=== PATIENT | female | born 1990 | race Caucasian/White ===

== ENCOUNTER 2023-06-27 14:23 | Observation (INO) | payer OTHER ==
[~2023-06-27] VITALS: Ht 160 cm; Wt 78.7 kg
[2023-06-27 15:27] LABS: BASOPHILS ABSOLUTE AUTO 0.08 K/mm3 (0.00-0.23); BASOPHILS PERCENT AUTO 0 % (0-2); EOSINOPHILS PERCENT AUTO 0 % (0-6); Hematocrit 46.7 % (33.0-51.0); Hemoglobin 15.6 g/dL (11.5-16.0); IMMATURE GRAN ABSOLUTE AUTO 0.28 K/mm3 (0.00-0.10); IMMATURE GRAN PERCENT AUTO 1 % (0-1); LYMPHOCYTES ABSOLUTE AUTO 2.24 K/mm3 (0.84-5.20); LYMPHOCYTES PERCENT AUTO 8 % (21-46); MONOCYTES ABSOLUTE AUTO 2.21 K/mm3 (0.16-1.47); MONOCYTES PERCENT AUTO 8 % (4-13); Mean Corpuscular HGB 31.5 pg (26.0-34.0); Mean Corpuscular HGB Conc 33.4 g/dL (31.5-36.5); Mean Corpuscular Volume 94 fL (80-100); Mean Platelet Volume 8.8 fL (9.1-12.4); NEUTROPHILS ABSOLUTE AUTO 22.01 K/mm3 (1.96-9.15); NEUTROPHILS PERCENT AUTO 82 % (41-73); Platelet Count 381 K/mm3 (150-400); RDW Coefficient Variation 11.7 % (11.7-14.2); RDW Standard Deviation 40.5 fL (35.1-46.3); Red Blood Cell Count 4.95 M/mm3 (3.80-5.20); White Blood Cell Count 26.82 K/mm3 (4.00-11.30)
[2023-06-27 16:03] LABS: Influenza A, PCR NEGATIVE (NEGATIVE); Influenza B, PCR NEGATIVE (NEGATIVE); SARS-Cov-2 (COVID-19) PCR, MMC NEGATIVE (NEGATIVE)
[2023-06-27 16:04] LABS: Resp Syncytial Virus, PCR POSITIVE (NEGATIVE)
[2023-06-27 19:42] LABS: Glucose, Blood 583 mg/dL (70-99)
[2023-06-27 21:29] LABS: Base Excess Venous -21.9 mmol/L; Bicarbonate Venous 10.1 mmol/L (24.0-30.0); PCO2 Venous 27.8 mmHg (38-42); pH Blood Venous 7.08 (7.34-7.37)
[2023-06-27 21:31] LABS: Albumin, Blood 4.3 g/dL (3.4-5.0); Bilirubin, Total 0.6 mg/dL (0.1-1.0); Bun/Creatinine Ratio 36.5 (12.0-20.0); Calcium, Blood 9.3 mg/dL (8.5-10.1); Creatinine, Blood 1.04 mg/dL (0.40-1.00); Globulin, Blood 4.5 g/dL (2.2-4.0); Potassium, Blood 5.8 mmol/L (3.5-5.5); Total Protein, Blood 8.8 g/dL (6.4-8.2)
[2023-06-27 22:18] LABS: Magnesium, Blood 2.6 mg/dL (1.6-2.4); Phosphorus, Blood 4.5 mg/dL (2.5-4.9)
[2023-06-27 23:23] LABS: Source, Urine Clean Catch
[2023-06-27 23:48] LABS: Bilirubin, Urine Neg (Neg); Blood, Urine 3+ (Neg); Glucose Qualitative, Urine 4+ (Neg); Ketones, Urine 4+ (Neg); Leukocyte Esterase, Urine Neg (Neg); Nitrite, Urine Neg (Neg); Protein, Urine 1+ (Neg); Urobilinogen, Urine NORM (Normal)
[2023-06-28 00:11] LABS: Appearance, Urine Clear (Clear); Bacteria Few /hpf; Color, Urine Pale Yellow (P-Yellow); Red Blood Cells, Urine 0-2 /hpf (0-2); Squamous Epithelial Cells Mod /hpf (Few); White Blood Cells, Urine 0-2 /hpf (0-5)
[2023-06-28 02:39] LABS: Albumin, Blood 3.5 g/dL (3.4-5.0); Anion Gap 12 mmol/L (6-16); Blood Urea Nitrogen 30 mg/dL (8-24); Bun/Creatinine Ratio 38.5 (12.0-20.0); CO2, Blood 14 mmol/L (21-32); Calcium, Blood 8.1 mg/dL (8.5-10.1); Chloride, Blood 110 mmol/L (98-108); Creatinine, Blood 0.78 mg/dL (0.40-1.00); Glomerular Filtration Rate 102 (60-); Glucose, Blood 272 mg/dL (70-99); Phosphorus, Blood 1.9 mg/dL (2.5-4.9); Potassium, Blood 4.3 mmol/L (3.5-5.5); Sodium, Blood 136 mmol/L (136-145)
[2023-06-28 03:05] LABS: Bun/Creatinine Ratio 40.2 (12.0-20.0); Calcium, Blood 8.2 mg/dL (8.5-10.1); Creatinine, Blood 0.75 mg/dL (0.40-1.00); Potassium, Blood 4.4 mmol/L (3.5-5.5)
[2023-06-28 07:25] LABS: Bun/Creatinine Ratio 35.2 (12.0-20.0); Calcium, Blood 8.3 mg/dL (8.5-10.1); Creatinine, Blood 0.71 mg/dL (0.40-1.00); Potassium, Blood 4.5 mmol/L (3.5-5.5)
[2023-06-28 07:30] LABS: Albumin, Blood 3.4 g/dL (3.4-5.0); Anion Gap 12 mmol/L (6-16); Blood Urea Nitrogen 25 mg/dL (8-24); Bun/Creatinine Ratio 36.7 (12.0-20.0); CO2, Blood 15 mmol/L (21-32); Calcium, Blood 8.3 mg/dL (8.5-10.1); Chloride, Blood 111 mmol/L (98-108); Creatinine, Blood 0.68 mg/dL (0.40-1.00); Glomerular Filtration Rate 117 (60-); Glucose, Blood 236 mg/dL (70-99); Phosphorus, Blood 2.3 mg/dL (2.5-4.9); Potassium, Blood 4.5 mmol/L (3.5-5.5); Sodium, Blood 138 mmol/L (136-145)
[2023-06-28 09:38] VITALS: BP 109/67
[2023-06-28] MEDS ORDERED: HUMALOG KW100 UNIT/1 SC (09:54)
[2023-06-28] MEDS ORDERED: INSULANI SC (09:55)
[2023-06-28 10:13] LABS: Bun/Creatinine Ratio 32.4 (12.0-20.0); Calcium, Blood 8.5 mg/dL (8.5-10.1); Creatinine, Blood 0.71 mg/dL (0.40-1.00); Potassium, Blood 4.5 mmol/L (3.5-5.5)
[2023-06-28 10:15] LABS: Albumin, Blood 3.3 g/dL (3.4-5.0); Anion Gap 8 mmol/L (6-16); Blood Urea Nitrogen 23 mg/dL (8-24); CO2, Blood 17 mmol/L (21-32); Calcium, Blood 8.4 mg/dL (8.5-10.1); Chloride, Blood 109 mmol/L (98-108); Creatinine, Blood 0.68 mg/dL (0.40-1.00); Glomerular Filtration Rate 117 (60-); Glucose, Blood 355 mg/dL (70-99); Phosphorus, Blood 2.2 mg/dL (2.5-4.9); Potassium, Blood 4.5 mmol/L (3.5-5.5); Sodium, Blood 134 mmol/L (136-145)
[2023-06-28 13:46] LABS: Bun/Creatinine Ratio 39.4 (12.0-20.0); Calcium, Blood 8.6 mg/dL (8.5-10.1); Creatinine, Blood 0.56 mg/dL (0.40-1.00); Potassium, Blood 4.2 mmol/L (3.5-5.5)
[2023-06-28 15:23] VITALS: BP 102/59
--- NOTE | 2023-06-28 15:43 | NUR ---
SUMMARY: ARRIVAL AND DEPARTURE Assumed care of pt on arrival to ICU 1 at 0929 from emergency department. Telephone report received from Louie MCKINNON. Per report, pt has been off insulin drip since previous evening and pt received glargine earlier today. Additionally, pt ate sandwich and pudding and tolerated well. Call placed to Dr Sharif to plan of care who presented to bedside with resident team shortly after pt arrival. Pt made medical floor status without telemetry. Discussed that CO2 on BMP has not yet normalized and pt's blood sugar has increased since receiving meal in ER. Plan to administer insulin, feed patient, give 500 mL bolus of LR and recheck labs at 1230. These interventions were completed. Pt tolerated meal without nausea or signs of GI upset. Lab results called to Dr Deborah Barreto. She and care team presented to bedside and provided discharge orders for patient. Pt agreeable and eager for discharge. Pt does not have primary care provider. Provided patient with list and contact information of primary care providers in area. Pt states her previous primary care provider in [facility] ensured she had insulin for a year and she has no trouble with accessing medication at this time. enocuraged pt to establish care in the area and she is agreeable. Discharge education provided as well as unit phone number. IV access discontinued. Escorted to ride via wheelchair by ANDREW Farah. No belongings left in room.
== END 2023-06-28 16:31 | disposition home or self-care (01) ==
LOC: ER 14:23 → ICUE 14:24 → ERHOLD 06-28 05:38 → ICUE 06-28 05:38 → ER 06-28 05:38 → ICUE 06-28 09:27 → ERHOLD 06-28 09:27 → ICUE 06-28 16:31
PROVIDERS: Family Medicine; Physician Assistant; Student in an Organized Health Care Education/Training Program; ADMIT Student in an Organized Health Care Education/Training Program
DX: E10.10 Type 1 diabetes mellitus with ketoacidosis without coma (principal); B97.4 Respiratory syncytial virus as the cause of diseases classified elsewhere; Z87.891 Personal history of nicotine dependence; Z79.4 Long term (current) use of insulin
CPT/HCPCS: 0241U; 36415; 71046; 80048; 80053; 80069; 81001; 82010; 82803; 82947; 83735; 84100; 84703; 85025; 93005; 93010; 96361; 96365; 96375; 96376; 99285-25; A9270; C9113; G0378; J1815; J2405; J7030; J7120

== ENCOUNTER → 2024-06-22 | Outpatient (CLI) | payer OTHER ==
[~2024-06-22] MED LIST: HUMALOG KW100 UNIT/1 SC; INSULANI SC
[2024-06-22 10:44] LABS: BASOPHILS ABSOLUTE AUTO 0.02 K/mm3 (0.00-0.23); BASOPHILS PERCENT AUTO 0 % (0-2); EOSINOPHILS ABSOLUTE AUTO 0.09 K/mm3 (0.00-0.68); EOSINOPHILS PERCENT AUTO 2 % (0-6); Hematocrit 41.8 % (33.0-51.0); Hemoglobin 14.6 g/dL (11.5-16.0); IMMATURE GRAN ABSOLUTE AUTO 0.01 K/mm3 (0.00-0.10); IMMATURE GRAN PERCENT AUTO 0 % (0-1); LYMPHOCYTES ABSOLUTE AUTO 2.37 K/mm3 (0.84-5.20); LYMPHOCYTES PERCENT AUTO 41 % (21-46); MONOCYTES ABSOLUTE AUTO 0.38 K/mm3 (0.16-1.47); MONOCYTES PERCENT AUTO 7 % (4-13); Mean Corpuscular HGB 31.6 pg (26.0-34.0); Mean Corpuscular HGB Conc 34.9 g/dL (31.5-36.5); Mean Corpuscular Volume 91 fL (80-100); Mean Platelet Volume 9.1 fL (9.1-12.4); NEUTROPHILS ABSOLUTE AUTO 2.88 K/mm3 (1.96-9.15); NEUTROPHILS PERCENT AUTO 50 % (41-73); Platelet Count 248 K/mm3 (150-400); RDW Coefficient Variation 11.2 % (11.7-14.2); RDW Standard Deviation 36.8 fL (35.1-46.3); Red Blood Cell Count 4.62 M/mm3 (3.80-5.20); White Blood Cell Count 5.75 K/mm3 (4.00-11.30)
[2024-06-22 10:54] LABS: Albumin/Globulin Ratio 1.1 (0.8-1.8); Bilirubin, Total 0.5 mg/dL (0.1-1.0); Bun/Creatinine Ratio 18.1 (12.0-20.0); Calcium, Blood 9.2 mg/dL (8.5-10.1); Creatinine, Blood 0.72 mg/dL (0.40-1.00); Globulin, Blood 3.6 g/dL (2.2-4.0); Total Protein, Blood 7.6 g/dL (6.4-8.2)
== END | disposition home or self-care (01) ==
LOC: LAB 10:38 → LAB SHORT 10:38
PROVIDERS: Family Medicine
DX: N39.0 Urinary tract infection, site not specified (principal); R10.13 Epigastric pain
CPT/HCPCS: 80053; 83690; 84484; 85025; 85379; 87077; 87086; 87147; 87186

== ENCOUNTER → 2024-06-24 | Outpatient (CLI) | payer OTHER ==
[2024-07-01 07:49] LABS: HPV HIGH RISK BY TMA Not Detected; HPV SOURCE Cervical
== END ==
LOC: LAB SHORT 17:25 → LAB 17:25
PROVIDERS: Nurse Practitioner Family
DX: Z01.419 Encounter for gynecological examination (general) (routine) without abnormal findings (principal)
CPT/HCPCS: 87624; G0123

== ENCOUNTER 2025-03-05 18:04 | Emergency (ER) | payer OTHER ==
[~2025-03-05] VITALS: Ht 162.6 cm; Wt 93.0 kg
[2025-03-05 18:57] LABS: BASOPHILS ABSOLUTE AUTO 0.03 K/mm3 (0.00-0.23); BASOPHILS PERCENT AUTO 1 % (0-2); EOSINOPHILS ABSOLUTE AUTO 0.07 K/mm3 (0.00-0.68); EOSINOPHILS PERCENT AUTO 1 % (0-6); Hematocrit 40.3 % (33.0-51.0); Hemoglobin 14.3 g/dL (11.5-16.0); IMMATURE GRAN ABSOLUTE AUTO 0.01 K/mm3 (0.00-0.10); IMMATURE GRAN PERCENT AUTO 0 % (0-1); LYMPHOCYTES ABSOLUTE AUTO 2.98 K/mm3 (0.84-5.20); LYMPHOCYTES PERCENT AUTO 45 % (21-46); MONOCYTES ABSOLUTE AUTO 0.31 K/mm3 (0.16-1.47); MONOCYTES PERCENT AUTO 5 % (4-13); Mean Corpuscular HGB Conc 35.5 g/dL (31.5-36.5); Mean Corpuscular Volume 91 fL (80-100); NEUTROPHILS ABSOLUTE AUTO 3.17 K/mm3 (1.96-9.15); NEUTROPHILS PERCENT AUTO 48 % (41-73); NRBC ABSOLUTE 0.00 K/mm3 (0.00-0.02); NRBC Auto 0.0 /100 WBC (0.0-0.2); Platelet Count 263 K/mm3 (150-400); RDW Coefficient Variation 11.7 % (11.7-14.2); RDW Standard Deviation 38.8 fL (35.1-46.3)
[2025-03-05 19:27] LABS: Alanine Aminotransfer (ALT/SGP 23.0 U/L (12-78); Albumin, Blood 4.0 g/dL (3.4-5.0); Albumin/Globulin Ratio 1.1 (0.8-1.8); Anion Gap 10.0 mmol/L (3-11); Aspartate Aminotrans (AST/SGOT 15.0 U/L (12-37); Bilirubin, Total 0.3 mg/dL (0.1-1.0); Blood Urea Nitrogen 10.0 mg/dL (8-24); CO2, Blood 27.0 mmol/L (21-32); Calcium, Blood 9.0 mg/dL (8.5-10.1); Chloride, Blood 103.0 mmol/L (98-108); Creatinine, Blood 0.65 mg/dL (0.40-1.00); Globulin, Blood 3.5 g/dL (2.2-4.0); Glucose, Blood 365.0 mg/dL (70-99); Potassium, Blood 3.4 mmol/L (3.5-5.5); Sodium, Blood 137.0 mmol/L (136-145); Total Protein, Blood 7.5 g/dL (6.4-8.2)
[2025-03-05 19:30] VITALS: BP 129/92
== END 2025-03-05 20:10 | disposition home or self-care (01) ==
LOC: ER 18:04
PROVIDERS: Student in an Organized Health Care Education/Training Program
DX: E10.65 Type 1 diabetes mellitus with hyperglycemia (principal); F10.129 Alcohol abuse with intoxication, unspecified
CPT/HCPCS: 80053; 85025; 99283

== ENCOUNTER 2025-04-02 17:11 | Inpatient (IN) | payer OTHER ==
[~2025-04-02] VITALS: Ht 162.6 cm; Wt 91.4 kg
[2025-04-02] VITALS (7 sets, daily range): BP systolic 113–140; BP diastolic 64–76
[2025-04-02] MEDS ORDERED: NS 1,000 ML IV SCH (17:50)
[2025-04-02] MEDS ORDERED: Ondansetron HCl 2 MG / ML 2ML Vial IV PRN ×2 (17:50→19:45)
[2025-04-02 18:17] LABS: BASOPHILS ABSOLUTE AUTO 0.06 K/mm3 (0.00-0.23); BASOPHILS PERCENT AUTO 0 % (0-2); EOSINOPHILS ABSOLUTE AUTO 0.00 K/mm3 (0.00-0.68); EOSINOPHILS PERCENT AUTO 0 % (0-6); Hematocrit 44.6 % (33.0-51.0); Hemoglobin 14.8 g/dL (11.5-16.0); IMMATURE GRAN ABSOLUTE AUTO 0.09 K/mm3 (0.00-0.10); IMMATURE GRAN PERCENT AUTO 1 % (0-1); LYMPHOCYTES ABSOLUTE AUTO 2.36 K/mm3 (0.84-5.20); LYMPHOCYTES PERCENT AUTO 12 % (21-46); MONOCYTES ABSOLUTE AUTO 0.50 K/mm3 (0.16-1.47); MONOCYTES PERCENT AUTO 3 % (4-13); Mean Corpuscular HGB Conc 33.2 g/dL (31.5-36.5); Mean Corpuscular Volume 96 fL (80-100); NEUTROPHILS ABSOLUTE AUTO 16.53 K/mm3 (1.96-9.15); NEUTROPHILS PERCENT AUTO 85 % (41-73); NRBC ABSOLUTE 0.00 K/mm3 (0.00-0.02); NRBC Auto 0.0 /100 WBC (0.0-0.2); Platelet Count 363 K/mm3 (150-400); RDW Coefficient Variation 11.4 % (11.7-14.2); RDW Standard Deviation 40.0 fL (35.1-46.3)
[2025-04-02 18:22] LABS: pH Blood Venous 7.07 (7.34-7.37)
[2025-04-02 19:16] LABS: Alanine Aminotransfer (ALT/SGP 27.0 U/L (12-78); Albumin, Blood 4.6 g/dL (3.4-5.0); Albumin/Globulin Ratio 1.2 (0.8-1.8); Anion Gap 27.0 mmol/L (3-11); Aspartate Aminotrans (AST/SGOT 19.0 U/L (12-37); Bilirubin, Total 0.8 mg/dL (0.1-1.0); Blood Urea Nitrogen 31.0 mg/dL (8-24); CO2, Blood 8.0 mmol/L (21-32); Calcium, Blood 9.7 mg/dL (8.5-10.1); Chloride, Blood 100.0 mmol/L (98-108); Creatinine, Blood 0.87 mg/dL (0.40-1.00); Globulin, Blood 3.7 g/dL (2.2-4.0); Glucose, Blood 466.0 mg/dL (70-99); Potassium, Blood 4.9 mmol/L (3.5-5.5); Sodium, Blood 130.0 mmol/L (136-145); Total Protein, Blood 8.3 g/dL (6.4-8.2)
[2025-04-02] MEDS ORDERED: Metoclopramide HCl 5MG / ML 2ML Vial IV ONE (19:25)
[2025-04-02] MEDS ORDERED: Insulin Human Regular 100 UNIT in NS 100 ML IV SCH (19:25)
[2025-04-02 19:44] LABS: Source, Urine Voided
[2025-04-02] MEDS ORDERED: FLU VACC TS2025-26(6MOS UP)/PF 45 MCG/0.5 ML SYRINGE IM SCH (19:45)
[2025-04-02 19:50] LABS: Bilirubin, Urine Neg (Neg); Glucose Qualitative, Urine 4+ (Neg); Ketones, Urine 4+ (Neg); Leukocyte Esterase, Urine Neg (Neg); Protein, Urine 2+ (Neg); Specific Gravity, Urine 1.020 (1.003-1.022); Urobilinogen, Urine NORM (Normal)
[2025-04-02] MEDS ORDERED: Metoclopramide HCl 5MG / ML 2ML Vial IV PRN (19:50)
[2025-04-02 19:57] LABS: Color, Urine Pale Yellow (P-Yellow)
[2025-04-02 19:58] LABS: Red Blood Cells, Urine 0-2 /hpf (0-2); White Blood Cells, Urine 0-2 /hpf (0-5)
--- NOTE | 2025-04-02 22:17 | NUR ---
NEW ADMIT: PATIENT ALERT AND ORIENT X4. REPORTS NO NUMBNESS/TINGLING OR PAIN AT THIS TIME. REPORTING MILD NAUSEA AND DRY MOUTH. MOVES EXTREMITIES X4. ROOM AIR WITH EVEN RESPIRATIONS. ST ON MONITOR 109-111. AMBULATES TO BATHROOM AND AROUND ROOM WITHOUT ASSISTANCE. ABLE TO ANSWER ALL QUESTIONS INDEPENDENTLY. LAST BM TODAY, URINATES INDEPENDENTLY. NO WOUNDS NOTED. IV X2 20G RIGHT AC AND 20G TO LEFT HAND PATENT. NPO AT THIS TIME. BG RESULTS NOTED IN CHART. PATIENT ARRIVED WITH INSULIN GTT INFUSTING AT 2.5 UNITS. LR INFUSING TO GRAVITY. EDUCATED AND CURRENTLY VERBALLY AGREES TO CURRENT PLAN OF CARE. NO S/S OF DISTRESS NOTED AT THIS TIME. SAFETY AND COMFORT MAINTIANED.
[2025-04-02 22:22] LABS: pH Blood Venous 7.01 (7.34-7.37)
[2025-04-02 22:39] LABS: Magnesium, Blood 2.2 mg/dL (1.6-2.4)
[2025-04-02 23:06] LABS: Blood Urea Nitrogen 31.0 mg/dL (8-24); Chloride, Blood 105.0 mmol/L (98-108); Creatinine, Blood 0.76 mg/dL (0.40-1.00); Glucose, Blood 439.0 mg/dL (70-99); Phosphorus, Blood 5.3 mg/dL (2.5-4.9); Potassium, Blood 5.4 mmol/L (3.5-5.5); Sodium, Blood 132.0 mmol/L (136-145)
[2025-04-02 23:07] LABS: Anion Gap 25.0 mmol/L (3-11); CO2, Blood 7.0 mmol/L (21-32); Calcium, Blood 9.2 mg/dL (8.5-10.1)
[2025-04-03] VITALS (29 sets, daily range): BP systolic 98–139; BP diastolic 51–81
[2025-04-03 02:02] LABS: pH Blood Venous 7.16 (7.34-7.37)
[2025-04-03 02:17] LABS: Anion Gap 18.0 mmol/L (3-11); Blood Urea Nitrogen 26.0 mg/dL (8-24); CO2, Blood 11.0 mmol/L (21-32); Calcium, Blood 9.0 mg/dL (8.5-10.1); Chloride, Blood 111.0 mmol/L (98-108); Creatinine, Blood 0.79 mg/dL (0.40-1.00); Glucose, Blood 255.0 mg/dL (70-99); Potassium, Blood 5.1 mmol/L (3.5-5.5); Sodium, Blood 135.0 mmol/L (136-145)
--- NOTE | 2025-04-03 02:17 | NUR ---
NOTIFIED DR. HOLLOWAY OF PATIENT BLOOD GLUCOSE <250. PER PROTOCOL TO START D5 1/2 NS AT A RATE OF AT LEAST 100 CC/HR. MD MADE AWARE OF NEED FOR CHANGE IN PATIENT FLUIDS AND STATES, "I WILL LOOK AT THE CHART AND PLACE ORDERS" AWAITING ORDERS.
[2025-04-03] MEDS ORDERED: D5W-1/2NS 1,000 ML IV SCH ×2 (02:30→16:00)
[2025-04-03] MEDS ORDERED: D5W-1/2NS 1,000 ML IV ONE (04:20)
[2025-04-03] MEDS ORDERED: Sodium Bicarb 8.4% 1 MEQ/ML 50 ML Vial IV ONE (05:00)
--- NOTE | 2025-04-03 05:28 | NUR ---
SHIFT SUMMARY: PT A/Ox4 AND PLEASANT WITH CARE. VSS. MONITOR SHOWS SINUS RYTHM TO SINUS TACH, RATE 90s-100s. STILL SOME NAUSEA, MEDICATED PER EMAR. PT ABLE TO USE TOILET SBA FOR LINES/CORDS. INSULIN GTT INFUSING, SEE FLOWSHEET FOR TITRATIONS. WILL REPORT TO ONCOMING RN.
[2025-04-03 06:32] LABS: Anion Gap 15.0 mmol/L (3-11); Blood Urea Nitrogen 21.0 mg/dL (8-24); CO2, Blood 16.0 mmol/L (21-32); Calcium, Blood 9.0 mg/dL (8.5-10.1); Chloride, Blood 110.0 mmol/L (98-108); Creatinine, Blood 0.72 mg/dL (0.40-1.00); Glucose, Blood 203.0 mg/dL (70-99); Potassium, Blood 4.5 mmol/L (3.5-5.5); Sodium, Blood 136.0 mmol/L (136-145)
--- NOTE | 2025-04-03 06:41 | NUR ---
UPDATE: NOTIFIED ON PT POTASSIUM OF 4.5. PT STILL ON INSULIN GTT. NO NEW ORDERS AT THIS TIME.
--- NOTE | 2025-04-03 07:54 | NUR ---
PT C/O NAUSEA DURING BSR, NOC RN GAVE ZOFRAN. UPON RETURN TO ROOM FOR BLOOD SUGAR CHECK, PT STATED THAT THE NAUSEA WAS IMPROVED. PT SLEEPY. TRYING TO REST BETWEEN SUGAR CHECKS.
[2025-04-03] MEDS ORDERED: Enoxaparin 40 MG/0.4 ML SYR SC SCH (09:00)
--- NOTE | 2025-04-03 09:00 | NUR ---
WHILE ON THE DEXTROSE AND INSULIN DRIP, DR. BONILLA ASKS THAT THE INSULIN DRIP NOT BE LESS THAN 3 U/HR UNTIL GAP IS CLOSED.
[2025-04-03 10:46] LABS: Magnesium, Blood 2.2 mg/dL (1.6-2.4); Phosphorus, Blood 2.4 mg/dL (2.5-4.9)
[2025-04-03 11:46] LABS: Anion Gap 13.0 mmol/L (3-11); Blood Urea Nitrogen 20.0 mg/dL (8-24); CO2, Blood 17.0 mmol/L (21-32); Calcium, Blood 8.9 mg/dL (8.5-10.1); Chloride, Blood 111.0 mmol/L (98-108); Creatinine, Blood 0.64 mg/dL (0.40-1.00); Glucose, Blood 165.0 mg/dL (70-99); Potassium, Blood 3.9 mmol/L (3.5-5.5); Sodium, Blood 137.0 mmol/L (136-145)
--- NOTE | 2025-04-03 14:42 | NUR ---
LIZZY CONTINUES ON THE INSULIN AND FLUIDS, AWAIT THE LAB RESULTS FROM 1400. WILL BEGIN TRANSITION WHEN GAP IS CLOSED. SHE CONTINUES WITH THE ABDOMINAL PAIN, NO FURTHER NAUSEA OR VOMITING. TAKING IN CLEAR LIQUIDS. REPORT GIVEN TO PRATIBHA ORTEGA.
[2025-04-03 14:54] LABS: Alanine Aminotransfer (ALT/SGP 20.0 U/L (12-78); Albumin, Blood 3.6 g/dL (3.4-5.0); Albumin/Globulin Ratio 1.2 (0.8-1.8); Anion Gap 11.0 mmol/L (3-11); Aspartate Aminotrans (AST/SGOT 9.0 U/L (12-37); Bilirubin, Total 0.6 mg/dL (0.1-1.0); Blood Urea Nitrogen 18.0 mg/dL (8-24); CO2, Blood 21.0 mmol/L (21-32); Calcium, Blood 8.5 mg/dL (8.5-10.1); Chloride, Blood 109.0 mmol/L (98-108); Creatinine, Blood 0.65 mg/dL (0.40-1.00); Globulin, Blood 3.1 g/dL (2.2-4.0); Glucose, Blood 200.0 mg/dL (70-99); Potassium, Blood 3.8 mmol/L (3.5-5.5); Sodium, Blood 137.0 mmol/L (136-145); Total Protein, Blood 6.7 g/dL (6.4-8.2)
[2025-04-03] MEDS ORDERED: Insulin Glargine 100 Unit/ML 3 ML SYR SC SCH ×2 (16:00)
--- NOTE | 2025-04-03 17:45 | NUR ---
ASSUMED CARE/SHIFT SUMMARY: ASSUMED CARE OF PT AT 1445, PT IS ALERT AND ORIENTED X 4, ABLE TO COMMUNICATE NEEDS. PT DENIES ANY PAIN AT THIS TIME. PT ON RA WITH SPO2 ABOVE 92% NO RESP DISTRESS NOTED. PT IN SR WITH HR IN THE 70'S, BP STABLE. PT TOLERATING PO INTAKE DENIES NAUSEA. PT TRANSITIONED TO SUBQ INSULIN AT 1617, AND D51/2 NS AND INSULIN DISCONTINUED AT 1717 PER ORDER. PT VOIDING URINE W/O COMPLICATIONS. NO BM THIS SHIFT. PT SBA IN THE ROOM. PLAN TO D/C HOME 04/04/25. PLAN OF CARE ONGOING.
--- NOTE | 2025-04-03 20:10 | NUR ---
PT TRANSFER TO ROOM 361: PT TRANSFERRED TO ROOM 361 WITH ALL BELONGINGS.
[2025-04-03 20:44] LABS: pH Blood Venous 7.34 (7.34-7.37)
[2025-04-03] MEDS ORDERED: Insulin Human Lispro 100 Units/ML 3ML Syringe SC SCH (21:00)
[2025-04-04] MEDS ORDERED: Insulin Human Lispro 100 Units/ML 3ML Syringe SC ONE (00:25)
[2025-04-04] MEDS ORDERED: Insulin Glargine-Yfgn 100 Unit/mL 3 ML SYR SC ONE (01:35)
[2025-04-04 02:08] LABS: Alanine Aminotransfer (ALT/SGP 22.0 U/L (12-78); Albumin, Blood 3.5 g/dL (3.4-5.0); Albumin/Globulin Ratio 1.2 (0.8-1.8); Anion Gap 13.0 mmol/L (3-11); Aspartate Aminotrans (AST/SGOT 15.0 U/L (12-37); Bilirubin, Total 0.8 mg/dL (0.1-1.0); Blood Urea Nitrogen 16.0 mg/dL (8-24); CO2, Blood 17.0 mmol/L (21-32); Calcium, Blood 8.4 mg/dL (8.5-10.1); Chloride, Blood 106.0 mmol/L (98-108); Creatinine, Blood 0.68 mg/dL (0.40-1.00); Globulin, Blood 2.9 g/dL (2.2-4.0); Glucose, Blood 349.0 mg/dL (70-99); Potassium, Blood 4.0 mmol/L (3.5-5.5); Sodium, Blood 132.0 mmol/L (136-145); Total Protein, Blood 6.4 g/dL (6.4-8.2)
[2025-04-04] MEDS ORDERED: Sodium Bicarb 8.4% Inj 100 MEQ in Sodium Chloride 0.45% 1,000 ML IV SCH (03:15)
[2025-04-04 05:21] LABS: Anion Gap 14.0 mmol/L (3-11); Blood Urea Nitrogen 14.0 mg/dL (8-24); CO2, Blood 18.0 mmol/L (21-32); Calcium, Blood 8.4 mg/dL (8.5-10.1); Chloride, Blood 106.0 mmol/L (98-108); Creatinine, Blood 0.65 mg/dL (0.40-1.00); Glucose, Blood 278.0 mg/dL (70-99); Potassium, Blood 3.9 mmol/L (3.5-5.5); Sodium, Blood 134.0 mmol/L (136-145)
[2025-04-04 05:32] VITALS: BP 120/64
[2025-04-04] MEDS ORDERED: Insulin Human Lispro 100 Units/ML 3ML Syringe SC SCH ×2 (08:30→12:20)
[2025-04-04] MEDS ORDERED: Insulin Glargine 100 Unit/ML 3 ML SYR SC SCH ×2 (09:00→21:00)
[2025-04-04] MEDS ORDERED: Insulin Glargine-Yfgn 100 Unit/mL 3 ML SYR SC SCH ×3 (09:00→21:00)
[2025-04-04 09:43] LABS: Anion Gap 14.0 mmol/L (3-11); Blood Urea Nitrogen 11.0 mg/dL (8-24); CO2, Blood 18.0 mmol/L (21-32); Calcium, Blood 8.6 mg/dL (8.5-10.1); Chloride, Blood 106.0 mmol/L (98-108); Creatinine, Blood 0.6 mg/dL (0.40-1.00); Glucose, Blood 326.0 mg/dL (70-99); Potassium, Blood 3.6 mmol/L (3.5-5.5); Sodium, Blood 134.0 mmol/L (136-145)
[2025-04-04] MEDS ORDERED: Insulin Regular 100 UNIT/ML 10ML Vial SC SCH (11:30)
[2025-04-04 13:58] LABS: Anion Gap 10.0 mmol/L (3-11); Blood Urea Nitrogen 12.0 mg/dL (8-24); CO2, Blood 23.0 mmol/L (21-32); Calcium, Blood 8.6 mg/dL (8.5-10.1); Chloride, Blood 104.0 mmol/L (98-108); Creatinine, Blood 0.59 mg/dL (0.40-1.00); Glucose, Blood 323.0 mg/dL (70-99); Potassium, Blood 3.8 mmol/L (3.5-5.5); Sodium, Blood 133.0 mmol/L (136-145)
--- NOTE | 2025-04-04 16:11 | NUR ---
SHIFT SUMMARY PT AOX4, COOPERATIVE, ABLE TO MAKE NEEDS KNOWN. PT IS IND IN ROOM. TELE DC'D. PT TOOK SHOWER. TOLERATING MEDICATIONS. CBG SUSTAINING 240-250'S. CORRECTLY PER SS. BED IN LOWEST POSITION, CALL LIGHT WITHIN REACH.
[2025-04-04 20:13] VITALS: BP 125/82
[2025-04-04 23:23] VITALS: BP 124/82
[2025-04-05 05:21] VITALS: BP 110/60
[2025-04-05 06:00] LABS: Anion Gap 9.0 mmol/L (3-11); Blood Urea Nitrogen 9.0 mg/dL (8-24); CO2, Blood 26.0 mmol/L (21-32); Calcium, Blood 8.7 mg/dL (8.5-10.1); Chloride, Blood 107.0 mmol/L (98-108); Creatinine, Blood 0.56 mg/dL (0.40-1.00); Glucose, Blood 124.0 mg/dL (70-99); Potassium, Blood 3.4 mmol/L (3.5-5.5); Sodium, Blood 139.0 mmol/L (136-145)
--- NOTE | 2025-04-05 06:03 | NUR ---
SHIFT SUMMARY PT REPORTS FEELING HYPOGLYCEMIC ONCE OVERNIGHT. CBG 136 AT THAT TIME. FRONTAL HEADACHE REPORTED, GIVEN ICE PACK AND MEDICATED PER EMAR. PT HAS PATENT IVs IN RAC, AND LHA. REMAINS INDEPENDENT, A&OX4, TAKES MEDS WHOLE WITH WATER. DOES HAVE A HOME GLUCOMETER, THOUGH CONCERN THAT IT IS INAPPROPRIATELY CALIBRATED. PT REQUESTS COMPARING HER DEVICE AGAINST HOSPITAL DEVICE THIS AM. PLAN FOR D/C HOME TODAY.
[2025-04-05 07:46] VITALS: BP 112/72
[2025-04-05] MEDS ORDERED: Insulin Glargine 100 Unit/ML 3 ML SYR SC SCH (09:00)
[2025-04-05] MEDS ORDERED: INSULIN GL100 UNIT/2 SC (11:17)
[2025-04-05] MEDS ORDERED: HUMALOG KW100 UNIT/1 SC (11:23)
--- NOTE | 2025-04-05 11:49 | NUR ---
DISCHARGE SUMMARY: PT EDUCATION COMPLETED. PT VERBALIZED UNDERSTANDING. PERSCRIPTIONS SENT TO [facility] VIA FAX. PT IVS TAKEN OUT AND PT BELONGINGS COLLECTED. PT DECLINED TO BE WHEELED OUT AND WANTED T WALK OUT HERSELF OUT.
== END 2025-04-05 11:45 | disposition home or self-care (01) | DRG 639 ==
LOC: ER 17:11 → ERHOLD 19:43 → ICUE 19:43 → MEDS 04-03 20:10 → ENPENDDIS 04-05 10:57 → MEDS 04-05 11:45
PROVIDERS: Emergency Medicine; Family Medicine; Internal Medicine; ADMIT Student in an Organized Health Care Education/Training Program
DX: E10.10 Type 1 diabetes mellitus with ketoacidosis without coma (principal); E88.819 Insulin resistance, unspecified; E87.6 Hypokalemia; Z79.4 Long term (current) use of insulin
CPT/HCPCS: 36415; 80048; 80053; 81001; 82010; 82803; 82947; 83690; 83735; 84100; 84703; 85025; 93005; 93010; 94762; 96361; 96374; 96375; 99285-25; A9270; J1650; J1815; J2405; J2765; J7030; J7042; J7120